=== PATIENT | male | born 1935 | race Caucasian/White ===

== ENCOUNTER 2024-12-26 17:59 | Inpatient (IN) | payer MEDICARE ==
[~2024-12-26] VITALS: Ht 175.3 cm; Wt 72.6 kg
[2024-12-26 18:32] LABS: BASOPHILS % (AUTO) 0.3 % (0.0-2.0); EOSINOPHILS # (AUTO) 0.1 K/uL (0.0-0.7); EOSINOPHILS % (AUTO) 0.8 % (0.0-7.0); HEMATOCRIT 30.1 % (36.7-47.1); HEMOGLOBIN 9.8 g/dL (12.5-16.3); LYMPHOCYTES # (AUTO) 1.6 K/uL (0.8-4.8); LYMPHOCYTES % (AUTO) 19.1 % (20.5-51.5); MEAN CORPUSCULAR HEMOGLOBIN 22.6 uug (23.8-33.4); MEAN CORPUSCULAR HGB CONC 32 g/dL (32.5-36.3); MONOCYTES # (AUTO) 0.9 K/uL (0.1-1.30); NEUTROPHILS # (AUTO) 5.7 K/uL (1.8-8.9); NEUTROPHILS % (AUTO) 68.8 % (38.5-71.5); PLATELET COUNT (AUTO) 206 K/uL (152-348); RED BLOOD CELL COUNT(AUTO) 4.31 MIL/uL (4.06-5.63); RED CELL DISTRIBUTION WIDTH 16.3 % (12.1-16.2); WHITE BLOOD COUNT (AUTO) 8.3 K/uL (3.6-10.2)
[2024-12-26 18:40] LABS: DIFFERENTIAL COMMENT 1
[2024-12-26] MEDS ORDERED: NITROGLYCERIN OINT 1 GM PACKET TP ONE (18:43)
[2024-12-26] MEDS ORDERED: FUROSEMIDE 20 MG/2 ML VIAL ONE (18:43)
[2024-12-26] MEDS: NITROGLYCERIN OINT 1 GM PACKET TP ONE (18:48)
[2024-12-26] MEDS: FUROSEMIDE 20 MG/2 ML VIAL IVP ONE (18:49)
[2024-12-26 18:53] LABS: LACTIC ACID 2.4 mmol/L (0.4-2.0)
[2024-12-26 18:54] LABS: ALANINE AMINOTRANSFERASE 77 U/L (16-63); ALBUMIN 3.5 g/dL (3.4-5.0); ALKALINE PHOSPHATASE 84 U/L (50-136); ASPARTATE AMINOTRANSFERASE 27 U/L (15-37); BILIRUBIN,DIRECT 0.2 mg/dL (0.0-0.2); BILIRUBIN,TOTAL 0.5 mg/dL (0.2-1.0); CALCIUM 8.5 mg/dL (8.5-10.1); CARBON DIOXIDE 20 mmol/L (21-32); CHLORIDE 87 mmol/L (98-107); CREATININE 1.2 mg/dL (0.6-1.3); GLUCOSE 233 mg/dL (74-106); NT-PRO BNP 8125 pg/mL (0-125); TOTAL PROTEIN, SERUM 6.8 g/dL (6.4-8.2); UREA NITROGEN, BLOOD 39 mg/dL (7-18)
[2024-12-26 18:55] LABS: SODIUM SERUM 118 mmol/L (136-145)
[2024-12-26] MEDS ORDERED: DEXTROSE 50% 50 ML DISP.SYRIN IV PRN (20:00)
[2024-12-26] MEDS ORDERED: ONDANSETRON 4 MG/2 ML VIAL IV PRN (20:00)
[2024-12-26] MEDS ORDERED: MAGNESIUM HYDROXIDE 30 ML LIQUID UDC PO PRN (20:00)
[2024-12-26] MEDS ORDERED: HEPARIN SODIUM,PORCINE 5,000 UNITS/ML VIAL ONE (20:30)
[2024-12-26] MEDS: HEPARIN/D5W DRIP 500 ML IV PRN (20:45)
[2024-12-26] MEDS: BLOOD SUGAR DIAGNOSTIC 1 EACH STRIP VI SCH (22:11)
[2024-12-26] MEDS: ATORVASTATIN 40 MG TABLET PO SCH (22:12)
[2024-12-26] MEDS: DOCUSATE SODIUM 100 MG CAPSULE PO SCH (22:12)
[2024-12-26 23:35] VITALS: BP 90/77; TEMP 97.4; O2SAT 99
[2024-12-26] MEDS: ACETAMINOPHEN 325 MG TABLET PO PRN (23:52)
[2024-12-27] VITALS (21 sets, daily range): BP systolic 87–146; BP diastolic 49–83; TEMP 97.3–98.5; O2SAT 95–99
[2024-12-27] MEDS: IV NS 1000 ML 1,000 ML IV PRN (01:43)
[2024-12-27 06:30] LABS: BASOPHILS % (AUTO) 0.4 % (0.0-2.0); EOSINOPHILS # (AUTO) 0.1 K/uL (0.0-0.7); EOSINOPHILS % (AUTO) 1.3 % (0.0-7.0); HEMATOCRIT 31.5 % (36.7-47.1); HEMOGLOBIN 10.2 g/dL (12.5-16.3); LYMPHOCYTES # (AUTO) 1.7 K/uL (0.8-4.8); MEAN CORPUSCULAR HEMOGLOBIN 22.6 uug (23.8-33.4); MEAN CORPUSCULAR HGB CONC 32 g/dL (32.5-36.3); MEAN CORPUSCULAR VOLUME 69.9 fL (73.0-96.2); MONOCYTES # (AUTO) 1.1 K/uL (0.1-1.30); MONOCYTES % (AUTO) 13.4 % (0.0-11.0); NEUTROPHILS # (AUTO) 5.1 K/uL (1.8-8.9); NEUTROPHILS % (AUTO) 63.9 % (38.5-71.5); PLATELET COUNT (AUTO) 215 K/uL (152-348); RED CELL DISTRIBUTION WIDTH 16.5 % (12.1-16.2)
[2024-12-27 06:52] LABS: ALANINE AMINOTRANSFERASE 69 U/L (16-63); ALBUMIN 3.4 g/dL (3.4-5.0); ALKALINE PHOSPHATASE 83 U/L (50-136); ASPARTATE AMINOTRANSFERASE 23 U/L (15-37); BILIRUBIN,TOTAL 0.6 mg/dL (0.2-1.0); CALCIUM 8.4 mg/dL (8.5-10.1); CARBON DIOXIDE 25 mmol/L (21-32); CHLORIDE 92 mmol/L (98-107); CHOLESTEROL 122 mg/dL (<200); CREATININE 1.1 mg/dL (0.6-1.3); GLUCOSE 128 mg/dL (74-106); HDL CHOLESTEROL 36 mg/dL (40-60); MAGNESIUM 1.8 mg/dL (1.8-2.4); PHOSPHOROUS 3.9 mg/dL (2.5-4.9); POTASSIUM 4.2 mmol/L (3.5-5.1); SODIUM SERUM 125 mmol/L (136-145); TOTAL PROTEIN, SERUM 6.7 g/dL (6.4-8.2); TRIGLYCERIDES 126 MG/DL (30-150); UREA NITROGEN, BLOOD 34 mg/dL (7-18)
[2024-12-27] MEDS: PANTOPRAZOLE SODIUM 40 MG TABLET.DR PO SCH (06:52)
[2024-12-27 06:53] LABS: IRON, SERUM 19 ug/dL (50-175)
[2024-12-27 07:00] LABS: DIFFERENTIAL COMMENT 1
[2024-12-27] MEDS: INSULIN REGULAR, HUMAN 1000 UNIT/10 ML VIAL SQ PRN (07:47)
[2024-12-27] MEDS: ASPIRIN EC 81 MG TABLET.DR PO SCH (08:25)
[2024-12-27] MEDS: FUROSEMIDE 40 MG/4 ML VIAL IV ONE ×2 (08:55→20:04)
[2024-12-27 10:19] LABS: THYROID STIMULATING HORMONE 4.197 mIU/mL (0.358-3.740)
[2024-12-27] MEDS ORDERED: ASPI81TA31 PO (10:21)
[2024-12-27] MEDS ORDERED: LISI10TA29 PO (10:22)
[2024-12-27] MEDS ORDERED: GLIP10TA11 PO (10:22)
[2024-12-27] MEDS ORDERED: CARV6.252 PO (10:23)
[2024-12-27] MEDS ORDERED: METF-440 PO (10:23)
[2024-12-27] MEDS ORDERED: ISOS30TA86 PO (10:23)
[2024-12-27] MEDS ORDERED: ATOR40TA PO (10:24)
[2024-12-27] MEDS ORDERED: CLOP75TA33 PO (10:24)
[2024-12-27] MEDS ORDERED: GABA-532 PO (10:25)
[2024-12-27] MEDS ORDERED: SPIR25TA PO (10:26)
[2024-12-27] MEDS ORDERED: FURO20TA4 PO (10:27)
[2024-12-27 13:28] LABS: CALCIUM 8.6 mg/dL (8.5-10.1); CARBON DIOXIDE 26 mmol/L (21-32); CHLORIDE 92 mmol/L (98-107); CREATININE 1.1 mg/dL (0.6-1.3); GLUCOSE 173 mg/dL (74-106); MAGNESIUM 1.7 mg/dL (1.8-2.4); PHOSPHOROUS 3.7 mg/dL (2.5-4.9); POTASSIUM 4.6 mmol/L (3.5-5.1); SODIUM SERUM 128 mmol/L (136-145); UREA NITROGEN, BLOOD 32 mg/dL (7-18)
[2024-12-27 13:52] LABS: URIC ACID 6.1 mg/dL (3.5-7.2)
[2024-12-27] MEDS: SOD FERRIC GLUC COMPLX/SUCROSE 125 MG in IV NORMAL SALINE 100 ML IV ONE (14:20)
[2024-12-27 15:13] LABS: *SODIUM RNDM,URINE 71 mmol/L (40-220)
[2024-12-27] MEDS: MAGNESIUM OXIDE 400 MG TABLET PO ONE (15:53)
[2024-12-27] MEDS: BISACODYL 10 MG SUPP.RECT RC PRN (15:53)
[2024-12-27] MEDS: MORPHINE SULFATE 2 MG/1 ML DISP.SYRIN IV PRN (15:53)
[2024-12-27 19:58] LABS: CALCIUM 8.2 mg/dL (8.5-10.1); CARBON DIOXIDE 22 mmol/L (21-32); CHLORIDE 91 mmol/L (98-107); CREATININE 1.5 mg/dL (0.6-1.3); GLUCOSE 100 mg/dL (74-106); POTASSIUM 4.5 mmol/L (3.5-5.1); SODIUM SERUM 124 mmol/L (136-145); UREA NITROGEN, BLOOD 36 mg/dL (7-18)
[2024-12-27 20:04] LABS: ALANINE AMINOTRANSFERASE 64 U/L (16-63); ALBUMIN 3.3 g/dL (3.4-5.0); ALKALINE PHOSPHATASE 85 U/L (50-136); ASPARTATE AMINOTRANSFERASE 17 U/L (15-37); BILIRUBIN,TOTAL 0.4 mg/dL (0.2-1.0); TOTAL PROTEIN, SERUM 6.8 g/dL (6.4-8.2)
[2024-12-27] MEDS: ALBUTEROL SULFATE 2.5 MG/3 ML NEBU NEB PRN (21:25)
[2024-12-28] VITALS (16 sets, daily range): BP systolic 85–129; BP diastolic 40–87; TEMP 98.1–98.5; O2SAT 96–100
[2024-12-28 04:53] LABS: BASOPHILS % (AUTO) 0.4 % (0.0-2.0); EOSINOPHILS # (AUTO) 0.1 K/uL (0.0-0.7); EOSINOPHILS % (AUTO) 0.8 % (0.0-7.0); HEMATOCRIT 33.5 % (36.7-47.1); HEMOGLOBIN 10.8 g/dL (12.5-16.3); LYMPHOCYTES # (AUTO) 2.3 K/uL (0.8-4.8); LYMPHOCYTES % (AUTO) 24.5 % (20.5-51.5); MEAN CORPUSCULAR HEMOGLOBIN 22.7 uug (23.8-33.4); MEAN CORPUSCULAR HGB CONC 32 g/dL (32.5-36.3); MEAN CORPUSCULAR VOLUME 70.1 fL (73.0-96.2); MONOCYTES # (AUTO) 1.3 K/uL (0.1-1.30); MONOCYTES % (AUTO) 14.3 % (0.0-11.0); NEUTROPHILS # (AUTO) 5.5 K/uL (1.8-8.9); PLATELET COUNT (AUTO) 225 K/uL (152-348); RED BLOOD CELL COUNT(AUTO) 4.77 MIL/uL (4.06-5.63); RED CELL DISTRIBUTION WIDTH 16.6 % (12.1-16.2); WHITE BLOOD COUNT (AUTO) 9.2 K/uL (3.6-10.2)
[2024-12-28 05:04] LABS: ALANINE AMINOTRANSFERASE 59 U/L (16-63); ALBUMIN 3.3 g/dL (3.4-5.0); ALKALINE PHOSPHATASE 90 U/L (50-136); ASPARTATE AMINOTRANSFERASE 16 U/L (15-37); BILIRUBIN,TOTAL 0.4 mg/dL (0.2-1.0); CALCIUM 8.2 mg/dL (8.5-10.1); CARBON DIOXIDE 26 mmol/L (21-32); CHLORIDE 93 mmol/L (98-107); CREATININE 1.3 mg/dL (0.6-1.3); GLUCOSE 137 mg/dL (74-106); MAGNESIUM 1.9 mg/dL (1.8-2.4); PHOSPHOROUS 4.3 mg/dL (2.5-4.9); POTASSIUM 3.9 mmol/L (3.5-5.1); SODIUM SERUM 128 mmol/L (136-145); TOTAL PROTEIN, SERUM 6.8 g/dL (6.4-8.2); UREA NITROGEN, BLOOD 33 mg/dL (7-18)
[2024-12-28 05:25] LABS: DIFFERENTIAL COMMENT 1
[2024-12-28] MEDS: LISINOPRIL 10 MG TABLET PO SCH (09:29)
[2024-12-28] MEDS ORDERED: SOD FERRIC GLUC COMPLX/SUCROSE 125 MG in IV NORMAL SALINE 100 ML IV ONE (13:00)
[2024-12-28] MEDS: POTASSIUM CHLORIDE 20 MEQ TAB.PRT.SR PO ONE (14:42)
[2024-12-28 17:23] LABS: *SODIUM RNDM,URINE 34 mmol/L (40-220)
[2024-12-28 22:21] LABS: *BILIRUBIN,URIN NEGATIVE (NEGATIVE); *BLOOD, URINE NEGATIVE (NEGATIVE); *CLARITY,URINE SLIGHTLY CLOUDY (CLEAR); *COLOR,URINE YELLOW (YELLOW); *KETONES,URINE NEGATIVE (NEGATIVE); *PROTEIN,URINE NEGATIVE (NEGATIVE); *UROBILINOGEN,URINE 0.2 E.U./dl (NORMAL); LEUKOCYTE ESTERASE ,URINE NEGATIVE (NEGATIVE); NITRITE, URINE NEGATIVE (NEGATIVE); UGLUCOSE NEGATIVE (NEGATIVE)
[2024-12-28 22:49] LABS: BACTERIA,URINE MANY /HPF (NONE SEEN); RBC,URINE NONE SEEN /HPF (0-3); SQUAMOUS EPITHELIAL CELL,UR FEW /HPF (NONE SEEN); WBC,URINE NONE SEEN /HPF (0-3)
[2024-12-29] VITALS (8 sets, daily range): BP systolic 105–115; BP diastolic 49–61; TEMP 98.1–99; O2SAT 95–98
[2024-12-29 04:33] LABS: BASOPHILS % (AUTO) 0.5 % (0.0-2.0); EOSINOPHILS # (AUTO) 0.1 K/uL (0.0-0.7); HEMATOCRIT 34.3 % (36.7-47.1); LYMPHOCYTES # (AUTO) 2.6 K/uL (0.8-4.8); LYMPHOCYTES % (AUTO) 25.3 % (20.5-51.5); MEAN CORPUSCULAR HEMOGLOBIN 22.4 uug (23.8-33.4); MEAN CORPUSCULAR HGB CONC 32 g/dL (32.5-36.3); MONOCYTES # (AUTO) 1.4 K/uL (0.1-1.30); MONOCYTES % (AUTO) 14.1 % (0.0-11.0); NEUTROPHILS % (AUTO) 59.1 % (38.5-71.5); PLATELET COUNT (AUTO) 232 K/uL (152-348); RED CELL DISTRIBUTION WIDTH 16.5 % (12.1-16.2); WHITE BLOOD COUNT (AUTO) 10.2 K/uL (3.6-10.2)
[2024-12-29 04:49] LABS: DIFFERENTIAL COMMENT 1
[2024-12-29 04:51] LABS: ALANINE AMINOTRANSFERASE 47 U/L (16-63); ALBUMIN 3.1 g/dL (3.4-5.0); ALKALINE PHOSPHATASE 81 U/L (50-136); ASPARTATE AMINOTRANSFERASE 12 U/L (15-37); BILIRUBIN,TOTAL 0.3 mg/dL (0.2-1.0); CALCIUM 8.1 mg/dL (8.5-10.1); CARBON DIOXIDE 26 mmol/L (21-32); CHLORIDE 95 mmol/L (98-107); CREATININE 1.1 mg/dL (0.6-1.3); GLUCOSE 137 mg/dL (74-106); MAGNESIUM 2.1 mg/dL (1.8-2.4); PHOSPHOROUS 3.2 mg/dL (2.5-4.9); POTASSIUM 4.3 mmol/L (3.5-5.1); SODIUM SERUM 128 mmol/L (136-145); TOTAL PROTEIN, SERUM 6.6 g/dL (6.4-8.2); UREA NITROGEN, BLOOD 28 mg/dL (7-18)
[2024-12-29 06:04] LABS: ANISOCYTOSIS 1+; HYPOCHROMASIA 1+; LYMPHOCYTES % (MANUAL) 21 % (20-40); MONOCYTES % (MANUAL) 12 % (2-10); NEUTROPHILS % (MANUAL) 67 % (42-75); PLATELET ESTIMATE ADEQUATE
[2024-12-30 00:30] VITALS: BP 92/55; TEMP 98; O2SAT 98
[2024-12-30 05:00] VITALS: BP 102/57; TEMP 98; O2SAT 98
[2024-12-30 06:03] LABS: *OCCULT BLOOD STOOL NEGATIVE (NEGATIVE)
[2024-12-30 07:25] VITALS: O2SAT 99
[2024-12-30 08:00] VITALS: BP 108/81; TEMP 98.3; O2SAT 98
[2024-12-30 10:11] VITALS: BP 102/61; O2SAT 98
== END 2024-12-30 12:55 | disposition short-term general hospital (02) | DRG 280 ==
LOC: ER 17:59 → UNDOADMIN 21:18 → EDBD 21:18 → CCU 21:18
PROVIDERS: ADMIT Internal Medicine; ATTEND Internal Medicine
DX: I13.0 Hypertensive heart and chronic kidney disease with heart failure and stage 1 through stage 4 chronic kidney disease, or unspecified chronic kidney disease (principal); I50.23 Acute on chronic systolic (congestive) heart failure; I21.A1 Myocardial infarction type 2; E87.1 Hypo-osmolality and hyponatremia; E87.20 Acidosis, unspecified; E11.65 Type 2 diabetes mellitus with hyperglycemia; E11.40 Type 2 diabetes mellitus with diabetic neuropathy, unspecified; M15.9 Polyosteoarthritis, unspecified; T38.3X5A Adverse effect of insulin and oral hypoglycemic [antidiabetic] drugs, initial encounter; Y92.009 Unspecified place in unspecified non-institutional (private) residence as the place of occurrence of the external cause; E78.5 Hyperlipidemia, unspecified; D50.9 Iron deficiency anemia, unspecified; Z79.02 Long term (current) use of antithrombotics/antiplatelets; Z79.84 Long term (current) use of oral hypoglycemic drugs; Z79.82 Long term (current) use of aspirin; Z79.899 Other long term (current) drug therapy; E86.1 Hypovolemia; I25.10 Atherosclerotic heart disease of native coronary artery without angina pectoris; E11.22 Type 2 diabetes mellitus with diabetic chronic kidney disease; N18.9 Chronic kidney disease, unspecified; I25.5 Ischemic cardiomyopathy; I25.2 Old myocardial infarction
CPT/HCPCS: 36415; 71045; 82378; 82533; 83550; 83605; 83735; 84100; 84153; 84300; 84443; 84480; 84484; 84550; 84681; 85025; 85730; 87040; 87077; 87086; 93307; 94760; A4606; A4663; G0378; J1644; J1938; J2270; J2916; J7040